=== PATIENT | female | born 1980 | race Caucasian/White ===

== ENCOUNTER 2020-08-17 04:54 | Emergency (ER) | payer MEDICARE, MEDICAID ==
[~2020-08-17] VITALS: Ht 167.6 cm; Wt 118.2 kg
[2020-08-17 05:43] LABS: BASOPHILS # (AUTO) 0.1 X10'3 (0-0.2); EOSINOPHILS # (AUTO) 0.4 X10'3 (0-0.9); EOSINOPHILS % (AUTO) 4.1 % (0-6); HEMATOCRIT 37.8 % (35.0-45.0); HEMOGLOBIN 12.8 g/dl (12.0-16.0); LYMPHOCYTES # (AUTO) 2.5 X10'3 (1.1-4.8); LYMPHOCYTES % (AUTO) 25.8 % (21-51); MEAN CORPUSCULAR HEMOGLOBIN 26.9 PG (27.0-31.0); MEAN CORPUSCULAR HGB CONC 33.7 g/dL (33.0-36.5); MEAN CORPUSCULAR VOLUME 79.9 FL (78-98); MEAN PLATELET VOLUME 7.2 FL (7.4-10.4); MONOCYTES # (AUTO) 0.7 X10'3 (0-0.9); MONOCYTES % (AUTO) 7.3 % (2-12); NEUTROPHILS # (AUTO) 6.1 X10'3 (1.8-7.7); NEUTROPHILS % (AUTO) 61.8 % (42-75); PLATELET COUNT 348 X10'3 (140-440); RED BLOOD COUNT 4.74 X10'6 (4.20-5.60); RED CELL DISTRIBUTION WIDTH 14.3 % (11.5-14.5); WHITE BLOOD COUNT 9.8 X10'3 (4.5-11.0)
[2020-08-17 05:58] LABS: ALANINE AMINOTRANSFERASE 27 U/L (12-78); ALBUMIN 3.5 G/DL (3.4-5.0); ALBUMIN/GLOBULIN RATIO 0.8 (1.1-1.5); ALKALINE PHOSPHATASE 102 IU/L (46-116); ANION GAP 2 (8-16); ASPARTATE AMINO TRANSFERASE 13 U/L (10-37); BILIRUBIN,TOTAL 0.3 MG/DL (0.1-1.0); BLOOD UREA NITROGEN 15 MG/DL (7-18); BUN/CREATININE RATIO 17.9 (6.6-38.0); CALCIUM 8.8 MG/DL (8.5-10.1); CHLORIDE 106 MMOL/L (99-107); CREATININE 0.84 MG/DL (0.40-0.90); GLUCOSE 101 MG/DL (70-104); POTASSIUM 3.9 MMOL/L (3.5-5.1); SODIUM 138 MMOL/L (135-145); TOTAL CARBON DIOXIDE 29.8 MMOL/L (24-32); TOTAL PROTEIN 7.8 G/DL (6.4-8.2); eGFR 74 ML/MIN
[2020-08-17 06:07] LABS: ETHANOL < 0.010 GM/DL (0.0-0.010)
--- NOTE | 2020-08-17 07:00 | NUR ---
Received records from [facility], Patient was swabbed for COVID on 08/05/20. SARS-CoV 2 was detected on a Rapid swab. Dr. Oscar notified.
[2020-08-17 07:59] LABS: URINE HCG NEGATIVE (NEG)
[2020-08-17 08:13] LABS: URINE AMPHETAMINE SCREEN NEGATIVE (Neg); URINE BARBITUATE SCREEN NEGATIVE (Neg); URINE BENZODIAZEPINES SCREEN NEGATIVE (Neg); URINE CANNABINOID SCREEN NEGATIVE (Neg); URINE COCAINE SCREEN NEGATIVE (Neg); URINE METHADONE SCREEN NEGATIVE (Neg); URINE OPIATE SCREEN NEGATIVE (Neg); URINE PHENCYCLIDINE SCREEN NEGATIVE (Neg)
--- NOTE | 2020-08-17 09:18 | NUR ---
Pt resting quietly on the gurney with eyes closed. Respirations unlabored. NAD.
--- NOTE | 2020-08-17 09:30 | NUR ---
Pt states that she started "not feeling well on 08/05" when asked when her COVID symptoms started.
--- NOTE | 2020-08-17 10:30 | NUR ---
Pt resting quietly on gurney. Respirations unlaboered. NAD
--- NOTE | 2020-08-17 11:30 | NUR ---
Pt resting quietly on gurney. Respirations unlabored. NAD
--- NOTE | 2020-08-17 12:30 | NUR ---
Pt sitting on [place]. Pt has cell phone for [facility] worker to be able talk to her regarding evaluation.
[2020-08-17 12:43] LABS: CLARITY,URINE CLOUDY (Clear); COLOR,URINE YELLOW (Yellow); GLUCOSE, URINE NEGATIVE (Neg); KETONES,URINE NEGATIVE (Neg); LEUKOCYTE ESTERASE ,URINE NEGATIVE (Neg); NITRITES, URINE NEGATIVE (Neg); OCCULT BLOOD,URINE NEGATIVE (Neg); PROTEIN,URINE NEGATIVE (Neg)
[2020-08-17 12:57] LABS: UA COLLECTION TYPE CLN CATCH MIDSTREAM
[2020-08-17 13:01] LABS: AMORPHOUS URATES 2+; BACTERIA,URINE FEW /HPF (Neg); CAL OXALATE CRYSTALS 3+ /HPF (NEGATIVE); MUCUS STRANDS FEW /LPF (Neg); RBC,URINE 0-2 /HPF (0-2); SQUAMOUS EPITHELIAL CELL,UR MANY /LPF (FEW); WBC,URINE 0-4 /HPF (0-4)
[2020-08-17] MEDS ORDERED: MYCOL30CR TP (13:20)
--- NOTE | 2020-08-17 13:30 | NUR ---
Pt resting on [facility]. Respirations unlabored. NAD
--- NOTE | 2020-08-17 14:30 | NUR ---
Pt sleeping on gurney. Respirations unlabored. NAD
--- NOTE | 2020-08-17 15:30 | NUR ---
Pt sleeping on gurney. Respirations unlabored. NAD
--- NOTE | 2020-08-17 16:30 | NUR ---
Pt changed to green scrubs. Pt's belongings double bagged in red bags and secured in outdoor iso storage bin by the loading docks.
--- NOTE | 2020-08-17 17:30 | NUR ---
Pt resting quietly on gurney. Respirations unlabored. NAD
--- NOTE | 2020-08-17 18:34 | NUR ---
Pt sleeping on gurney. Respirations unlabored. NAD
--- NOTE | 2020-08-17 18:59 | NUR ---
pt up in [facility], eating dinner. in no apparent distress.
--- NOTE | 2020-08-17 20:20 | NUR ---
pt in no apparent distress. provided juices, nystatin cream applied.
[2020-08-17] MEDS: nystatin 15 GM ointment TP SCH (20:58)
--- NOTE | 2020-08-18 00:38 | NUR ---
pt laying on side, respirations even in no apparent distress
--- NOTE | 2020-08-18 05:53 | NUR ---
pt observed resting comfortably all night with respirations even in no apparent distress.
--- NOTE | 2020-08-18 06:30 | NUR ---
Patient sleeping. Respirations unlabored. NAD
--- NOTE | 2020-08-18 07:30 | NUR ---
Pt sleeping. Respirations unlabored. NAD.
[2020-08-18] MEDS: nystatin 15 GM ointment TP SCH ×2 (08:00→20:16)
--- NOTE | 2020-08-18 10:10 | NUR ---
Assumed care of the patient at this time. Pt is resting in the room with the lights dimmed and in a position of comfort.
--- NOTE | 2020-08-18 11:08 | NUR ---
No change in condition, continuing to monitor. Sitter outside the room in the hallway.
--- NOTE | 2020-08-18 12:05 | NUR ---
Pt is resting, even and unlabored respirations. Pt has no signs of distress. Sitter outside the room.
--- NOTE | 2020-08-18 13:09 | NUR ---
Pt given a lunch tray at this time. Pt requested juice instead of iced tea. Pt has no complains and no signs of distress.
--- NOTE | 2020-08-18 14:08 | NUR ---
Continuing to monitor. Pt has no change in condition.
--- NOTE | 2020-08-18 15:10 | NUR ---
No change in condition. Pt is resting in a position of comfort on the gurney. Sitter right outside the room.
--- NOTE | 2020-08-18 16:11 | NUR ---
No change in condition. Continuing to monitor at this time.
--- NOTE | 2020-08-18 17:10 | NUR ---
Pt is resting on the gurney with even and unlabored respirations. Pt has no complaints.
--- NOTE | 2020-08-18 18:10 | NUR ---
Pt given her dinner tray. No complaints at this time. Pt has no change in condition.
--- NOTE | 2020-08-18 19:05 | NUR ---
No change in condition. Pt is resting, in line of sight of the nurse's station.
--- NOTE | 2020-08-18 20:05 | NUR ---
Pt given a new pitcher of water, apple juice and crackers as a snack. Pt denies pain or complaints. Pt is awaiting further orders or disposition from [facility].
--- NOTE | 2020-08-18 20:43 | NUR ---
SPOKE WITH MD VALLES REGARDING PTS COVID STATUS AND THE FACT THAT FACILITIES WILL NOT LOOK INTO ACCPETING HER BECAUSE OF HER POSITIVE RESULT FROM 08/05/20 - PER MD VALLES PT ONLY NEEDS TO BE IN ISOLATION FOR 10 DAYS AND SHE CAN BE TAKEN OUT OF ISOLATION NOW. SHE STATES THERE IS NO NEED TO RETEST THE PT AND THAT IT IS CONTRAINDICATED BY THE CDC. SHE FURTHER STATED THAT SHE WILL WRITE A LETTER TOMORROW THAT WE CAN PUT IN HER PACKET FOR ACCEPTING FACILITIES THAT SAYS SHE IS NO LONGER REQUIRED TO BE IN ISOLATION.
--- NOTE | 2020-08-18 21:00 | NUR ---
Pt resting with no complaints, no signs of distress.
--- NOTE | 2020-08-18 21:04 | NUR ---
PER THE [facility] OFFICE PTS MEDI-JESSY IS NOT ACTIVE IN THIS [facility] AN OPTION FOR PLACEMENT WILL BE TO PUT HER IN [facility] BUT HE STATED THERE IS NOT A ROOM UNTIL THURSDAY.
--- NOTE | 2020-08-18 22:03 | NUR ---
No change in condition. Respirations even and unlabored.
--- NOTE | 2020-08-19 06:52 | NUR ---
Assumed care of pt, pt. transferred in a w/c from the main ER. Resting comfortably at this time, rr even and unlabored.
--- NOTE | 2020-08-19 08:30 | NUR ---
Pt. awake and compliant with Nystatin Cream ordered for rash under bilateral breasts. 1:1 completed at bedside, pt. reports she is currently homeless and continues to have S/I to jump in front of a bus. Pt. also reports a hx of medication overdose in 2012 and 2014. She has ongoing command A/KHALIL, but denies any V/KHALIL and no delusional statements made.
[2020-08-19] MEDS: nystatin 15 GM ointment TP SCH ×2 (08:33→20:00)
[2020-08-19] MEDS ORDERED: NO HOME MEDS (09:17)
--- NOTE | 2020-08-19 10:30 | NUR ---
Pt. sleeping at this time, laying on back, rr even and unlabored.
--- NOTE | 2020-08-19 12:31 | NUR ---
Pt. sitting up in bed at this time, no s/s of distress. Remains pleasant and cooperative.
--- NOTE | 2020-08-19 14:33 | NUR ---
Pt. sleeping on her lt. side at this time, HOB elevated, rr even and unlabored.
--- NOTE | 2020-08-19 16:44 | NUR ---
Pt. awake and laying in bed at this time, calm and cooperative, and rr even and unlabored.
--- NOTE | 2020-08-19 17:51 | NUR ---
Pt. continues to lay awake in bed, rr are even and unlabored.
--- NOTE | 2020-08-19 19:21 | NUR ---
Patient returned to sleep after eating her evening meal. In direct view from the nursing station.
--- NOTE | 2020-08-19 20:15 | NUR ---
In direct view from nursing station. Patient is sleeping quietly, no distress noted.
--- NOTE | 2020-08-19 21:30 | NUR ---
Patient is sleeping quietly in a low fowlers position.
--- NOTE | 2020-08-20 00:24 | NUR ---
Patient is sleeping quietly on her left side. In direct view from nursing station. No distress.
--- NOTE | 2020-08-20 03:49 | NUR ---
Patient is sleeping quietly in a supine position.
--- NOTE | 2020-08-20 03:50 | NUR ---
Patient is sleeping in no distres, supine, low fowlers position.
[2020-08-20 06:23] VITALS: BP 113/75
--- NOTE | 2020-08-20 06:40 | NUR ---
Patient sleeing supine. No distress observed. Continue to monitor.
--- NOTE | 2020-08-20 08:00 | NUR ---
Patient eating breakfast. No distress observed. Continue to monitor.
[2020-08-20] MEDS: nystatin 15 GM ointment TP SCH ×2 (08:10→20:20)
--- NOTE | 2020-08-20 08:20 | NUR ---
RN placed Nystatin ointment under bilateral breasts. Very red and fowel smelling. Continue to monitor.
--- NOTE | 2020-08-20 10:05 | NUR ---
Patient in the BR cleaning up. No distress observed. Continue to monitor.
--- NOTE | 2020-08-20 12:45 | NUR ---
Patient eating lunch. No distress observed. Continue to monitor.
--- NOTE | 2020-08-20 13:32 | NUR ---
Monitoring pt while primary nurse on lunch break. [facility] liaara states he will renew her [id number] hold at this time.
[2020-08-20] MEDS ORDERED: loperamide 2mg capsule PO ONE (14:15)
--- NOTE | 2020-08-20 19:00 | NUR ---
Patient is up to the BR. No s/s of distress.
--- NOTE | 2020-08-20 20:22 | NUR ---
Patient is in BR applying Nystatin oinyment to wade area. Observed by SHARON Ma
[2020-08-20] MEDS ORDERED: MYCOL30CR TP (22:32)
== END 2020-08-20 21:29 ==
LOC: ER 04:55
DX: U07.1 COVID-19 (principal); R45.851 Suicidal ideations; N61.0 Mastitis without abscess; R09.89 Other specified symptoms and signs involving the circulatory and respiratory systems; R05 Cough; R44.0 Auditory hallucinations; F32.9 Major depressive disorder, single episode, unspecified; F17.200 Nicotine dependence, unspecified, uncomplicated; Z72.89 Other problems related to lifestyle; Z59.0 Homelessness; Z88.2 Allergy status to sulfonamides; Z88.1 Allergy status to other antibiotic agents; Z91.013 Allergy to seafood; Z88.8 Allergy status to other drugs, medicaments and biological substances
CPT/HCPCS: 36415; 80053; 80305; 80320; 81001; 81025; 84443; 85025; 99285